=== PATIENT | female | born 1960 | race Caucasian/White ===

== ENCOUNTER 2023-10-28 14:30 | Inpatient (IN) | payer OTHER, SELFPAY ==
[2023-10-28] VITALS (36 sets, daily range): BP systolic 101–146; BP diastolic 66–94; PULSE 82–108; TEMP 36.7–37.4; O2SAT 97–99; BMI 26.5
--- NOTE | 2023-10-28 15:04 | ECG_ITS ---
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
[2023-10-28 15:21] LABS: Hematocrit 39.8 % (36.0-48.0); Mean Corpuscular HGB Conc 35.2 g/dL (29.9-35.2); Mean Corpuscular Hemoglobin 31.2 pg (26.7-34.0); Mean Corpuscular Volume 88.6 fL (81.0-99.0); Mean Platelet Volume 8.9 fL (9.5-13.5); Platelet Count 357 10^3/uL (150-450); Red Blood Count 4.49 10^6/uL (4.20-5.40); Red Cell Distribution Width 12.7 % (11.0-15.0); White Blood Count 19.4 10^3/uL (4.0-11.0)
[2023-10-28] MEDS: 0.9 % SODIUM CHLORIDE 1,000 ML 1000 ML IV (15:35)
[2023-10-28 15:39] LABS: Alanine Aminotransferase 34 U/L (14-59); Albumin Globulin Ratio 1.3; Albumin Level 4.2 g/dL (3.4-5.0); Alkaline Phosphatase 88 U/L (46-116); Anion Gap 14.8; Aspartate Amino Transferase 18 U/L (15-37); Bilirubin Total 0.9 mg/dL (0.2-1.0); Calcium 9.4 mg/dL (8.5-10.1); Carbon Dioxide 22.5 mmol/L (21.0-32.0); Chloride 95 mmol/L (98-107); Estimated GFR (African America >60 (>=60); Estimated GFR (Non-African Ame >60 (>=60); Globulin 3.3 g/dL; Glucose 109 mg/dL (74-106); Potassium 3.3 mmol/L (3.5-5.1); Sodium 129 mmol/L (136-145); Total Protein 7.5 g/dL (6.4-8.2); Troponin I High Sensitivity 7.8 pg/mL (4.0-51.3)
[2023-10-28 15:41] LABS: D Dimer 0.64 mg/L FEU (<=0.59)
--- NOTE | 2023-10-28 15:43 | CT_ITS ---
The [address] [address] Patient Name: NIKOLAY HORN MRN: [id number] date: 1960 Sex: F Assigned Patient Location: ER Current Patient Location: ER Accession/Order Number: [id number] Exam Date: 10/28/2023 16:30 Report Date: 10/28/2023 17:43 At the request of: BAKARI ALVAREZ Procedure: CT angio chest EXAM: CT angio chest HISTORY: POST OP D DIMER ELEVATED PALPITATION . Clinical suspicion of pulmonary embolus. COMPARISON: Chest x-ray 06/21/2020. TECHNIQUE: CTA chest PE protocol. Axial scans with triplanar and mid reformatted images. Individualized dose reduction used for this exam. Contrast: 98 mL Omnipaque 350. FINDINGS: Pulmonary arteries: Normal pulmonary artery enhancement without thrombus or embolus. Normal sized pulmonary artery. Lungs/pleura: Minor dependent atelectasis without consolidation or edema. No pleural effusion or pneumothorax Cardiac/vascular: Normal aortic enhancement without aneurysm or dissection. Minimal coronary artery calcification. Normal heart size. No evidence of right ventricular strain No pericardial effusion. Mediastinum: No mass or adenopathy. Unremarkable central airways, esophagus. No lower neck or axillary mass or adenopathy. No acute abnormality upper abdomen. MUSCULOSKELETAL: No suspicious bone lesion. Right shoulder hardware partially imaged. CT/CT angio chest IMPRESSION: Negative for pulmonary embolus or other acute appearing abnormality. Electronically authenticated by: SARAH PRITCHARD Date: 10/28/2023 17:43
[2023-10-28 15:46] LABS: Magnesium 1.6 mg/dL (1.8-2.4)
[2023-10-28 15:49] LABS: Lymphocytes Absolute Manual 0.77 10^3/uL (1.20-3.80); Monocytes Absolute Manual 0.97 10^3/uL (0.30-0.80); Segmented Neut Absolute Manual 17.65 10^3/uL (1.4-6.5)
[2023-10-28 15:51] LABS: Toxic Vacuolation 1+
[2023-10-28] MEDS: ONDANSETRON PF 4 MG/2 ML VIAL IV (15:58)
[2023-10-28] MEDS: FAMOTIDINE/PF 20 MG/2 ML VIAL IV (15:58)
--- NOTE | 2023-10-28 16:12 | ED.DIZZY1 ---
HPI - Dizziness General Chief Complaint: Dizziness Stated Complaint: DIZZY, PALPITATIONS, VOMITING Time Seen by Provider: 10/28/23 15:03 Source: patient Mode of arrival: walk-in History of Present Illness HPI Narrative: The patient comes to the ER with the symptoms of dizziness and palpitation that she has been feeling for the last at least 5 days, she also has been having decreased p.o. intake, the patient apparently almost few weeks ago she had a fracture of her right humerus after having a dislocation that she sustained while she was visiting [place], the patient then she was sent over when she had a surgery in [facility] last Sunday, the patient since then has been feeling of dizziness and decreased p.o. intake with palpitation She admitted that she is not eating enough and have no appetite, she is denying any chest pain although she feels that her heart racing Denying any leg weakness any numbness tingling down her arms She also denies any fever or chills any coughing or any difficulty breathing at the moment Related Data Home Medications ?Medication ?Instructions ?Recorded ?Confirmed acetaminophen 500 mg tablet 500 mg PO .q8 PRN pain 10/28/23 10/28/23 aspirin 81 mg tablet,delayed 81 mg PO BID 10/28/23 10/28/23 release atorvastatin 20 mg tablet 20 mg PO .qhs 10/28/23 10/28/23 calcium carbonate 500 mg-vitamin 1 tab PO BID 10/28/23 10/28/23 D3 5 mcg (200 unit) tablet (Oysco 500/D) docusate sodium 100 mg capsule 100 mg PO BID 10/28/23 10/28/23 hydrochlorothiazide 25 mg tablet 25 mg PO QDAY 10/28/23 10/28/23 ibuprofen 800 mg tablet 800 mg PO QDAY PRN pain 10/28/23 10/28/23 losartan 100 mg tablet 100 mg PO .qhs 10/28/23 10/28/23 ondansetron HCl 4 mg tablet 4 mg PO Q8H PRN nausea and vomiting 10/28/23 10/28/23 Allergies Allergy/AdvReac Type Severity Reaction Status Date / Time cephalexin [From Keflex] AdvReac Intermediate Unknown Verified 10/28/23 14:42 BACTRIM AdvReac Intermediate Unknown Uncoded 10/28/23 14:42 VANCOMYCIN AdvReac Intermediate UNKNOWN Uncoded 10/28/23 14:42 Review of Systems ROS Status of ROS 10 or more systems reviewed and unremarkable except as noted in history and below Exam Narrative Exam Narrative: Nurses notes and vital signs reviewed and patient is not hypoxic. General: Well-appearing and in no apparent distress. Skin: Warm, dry, no pallor noted. No rash. Head: Normocephalic, atraumatic. Neck: Supple, non-tender. Eye: Pupils are equal, round and EOMI. No scleral icterus. Ears, Nose, Mouth, and Throat: TM are clear, no nasal mucosal hypertrophy. Oral mucosa is moist, no posterior oropharynx erythema, uvula is mid-line Cardiovascular: Regular Rate and Rhythm without murmur, gallop or rub. Respiratory: No accessory muscle use or respiratory distress. Lungs are clear to auscultation, no wheezing, rales or rhonchi Chest Wall: no tenderness Back: No midline thoracic or lumbar vertebral tenderness. No CVA tenderness Musculoskeletal: normal ROM, no calf or popliteal tenderness, no lower extremity edema/swelling, on the right lateral aspect of the humerus the patient dressing of the recent surgery with no signs of infection clean and healing GI: Abdomen is soft, non-distended. Normal bowel sounds. No masses appreciated. No tenderness to palpation. No rebound, guarding, or rigidity noted. Neurological: A&O x4. No cranial nerve dysfunction observed. No truncal ataxia. Moves all extremities. Sensation intact. Psychiatric: Cooperative and interactive. Normal mood and affect. Constitutional Vital Signs, click to edit/add: Last Vital Signs Temp 98.0 F 10/28/23 14:37 Pulse 90 10/28/23 17:10 Resp 14 10/28/23 17:10 BP 125/82 10/28/23 14:37 Pulse Ox 99 10/28/23 14:37 O2 Del Method Room Air 10/28/23 14:37 Course Vital Signs Vital signs: Vital Signs Temperature 98.0 F 10/28/23 14:37 Pulse Rate 108 H 10/28/23 14:37 Respiratory Rate 18 10/28/23 14:37 Blood Pressure 125/82 10/28/23 14:37 Pulse Oximetry 99 10/28/23 14:37 Oxygen Delivery Method Room Air 10/28/23 14:37 Temperature 98.0 F 10/28/23 14:37 Pulse Rate 90 10/28/23 17:10 Respiratory Rate 14 10/28/23 17:10 Blood Pressure 125/82 10/28/23 14:37 Pulse Oximetry 99 10/28/23 14:37 Oxygen Delivery Method Room Air 10/28/23 14:37 MDM - Dizziness MDM Narrative Medical decision making narrative: The patient EKG showing sinus rhythm with a heart rate of 99 and there is some T wave inversion in lead V4, V5 and V6 also seen in lead II and aVF The patient CBC showed some leukocytosis which is mostly reactive there is no source of infection as the patient had her surgery 5 days ago The patient D-dimer was elevated CT PE shows no acute pathology The patient chemistry showing hyponatremia and hypochloremia as well as hypomagnesiumia that was corrected with IV magnesium and p.o. potassium Patient also provided with 1.5 L of fluid The patient case was discussed with and he requested the patient to be admitted for observation to be evaluated with cardiology as inpt The patient case was discussed with and she will be admitted under Patient repeated EKG shows still T wave inversion in lead II, aVF and V4 V5 and V6 I did explain to the patient that she will be admitted for observation. She did have multiple questions and I did provide her with answers. Patient seems to be very anxious. Lab Data Labs: Lab Results 10/28/23 10/28/23 10/28/23 Range/Units 15:10 17:15 17:47 WBC 19.4 H (4.0-11.0) 10^3/uL RBC 4.49 (4.20-5.40) 10^6/uL Hgb 14.0 (12.0-16.0) g/dL Hct 39.8 (36.0-48.0) % MCV 88.6 (81.0-99.0) fL MCH 31.2 (26.7-34.0) pg MCHC 35.2 (29.9-35.2) g/dL RDW 12.7 (11.0-15.0) % Plt Count 357 (150-450) 10^3/uL MPV 8.9 L (9.5-13.5) fL Seg Neuts % (Manual) 91.0 Lymphocytes % (Manual) 4.0 L (20.5-60.0) % Monocytes % (Manual) 5.0 (1.7-12.0) % Eosinophils % (Manual) 0.0 L (0.9-7.0) % Basophils % (Manual) 0.0 L (0.2-2.0) % Neutrophils # (Manual) 17.65 H (1.4-6.5) 10^3/uL Lymphocytes # (Manual) 0.77 L (1.20-3.80) 10^3/uL Monocytes # (Manual) 0.97 H (0.30-0.80) 10^3/uL Eosinophils # (Manual) 0.00 (0.00-0.70) 10^3/uL Basophils # (Manual) 0.00 (0.00-0.10) 10^3/uL Toxic Vacuolation 1+ D-Dimer 0.64 H* (<=0.59) mg/L FEU Sodium 129 L (136-145) mmol/L Potassium 3.3 L (3.5-5.1) mmol/L Chloride 95 L (98-107) mmol/L Carbon Dioxide 22.5 (21.0-32.0) mmol/L Anion Gap 14.8 BUN 16.0 (7.0-18.0) mg/dL Creatinine 0.80 (0.55-1.02) mg/dL Est GFR ( Amer) >60 (>=60) Est GFR (Non-Af Amer) >60 (>=60) BUN/Creatinine Ratio 20.0 Glucose 109 H (74-106) mg/dL Calcium 9.4 (8.5-10.1) mg/dL Magnesium 1.6 L (1.8-2.4) mg/dL Total Bilirubin 0.9 (0.2-1.0) mg/dL AST 18 (15-37) U/L ALT 34 (14-59) U/L Alkaline Phosphatase 88 (46-116) U/L Troponin I High Sens 7.8 7.8 (4.0-51.3) pg/mL Total Protein 7.5 (6.4-8.2) g/dL Albumin 4.2 (3.4-5.0) g/dL Globulin 3.3 g/dL Albumin/Globulin Ratio 1.3 SARS-CoV-2 Ag (CV2AG) Negative (NEGATIVE) Discharge Plan Discharge Chief Complaint: Dizziness Clinical Impression: Acute electrocardiogram changes, Dizziness, Acute hyponatremia, Hypomagnesemia Patient Disposition: Admitted as Observation Time of Disposition Decision: 18:43
[2023-10-28] MEDS: MAGNESIUM SULFATE IN WATER 2 GM/50 ML PREMIX IV (16:18)
[2023-10-28 17:38] LABS: Troponin I High Sensitivity 7.8 pg/mL (4.0-51.3)
[2023-10-28] MEDS: 0.9 % SODIUM CHLORIDE 1,000 ML 500 ML IV (18:01)
[2023-10-28 18:05] LABS: Internal Control Within Normal Limits; SARS-CoV-2 Ag NEGATIVE (NEGATIVE)
--- NOTE | 2023-10-28 18:28 | ECG_ITS ---
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
[2023-10-28] MEDS: POTASSIUM BICARBONATE/CIT 25 MEQ TABLET EFF PO (18:51)
[2023-10-28 19:23] LABS: Bilirubin Urine NEGATIVE (NEGATIVE); Blood Urine NEGATIVE (NEGATIVE); Clarity Urine CLEAR (CLEAR); Color Urine LT. YELLOW (YELLOW); Glucose Urine UA NEGATIVE (NEGATIVE); Ketones Urine 15 mg/dL (NEGATIVE); Leukocyte Esterase Urine NEGATIVE (NEGATIVE); Nitrite Urine NEGATIVE (NEGATIVE); Protein Urine NEGATIVE (NEG/TRACE); Urobilinogen Urine 0.2 EU/dL (0.2-1.0)
[2023-10-28 19:24] LABS: Urine Microscopic Indicated NO
[2023-10-28] MEDS: ACETAMINOPHEN 325 MG TABLET 650 MG PO (20:08)
[2023-10-28] MEDS: LOSARTAN POTASSIUM 50 MG TABLET 100 MG PO (21:31)
[2023-10-28] MEDS: ATORVASTATIN CALCIUM 20 MG TABLET PO (21:31)
[2023-10-28] MEDS: ASPIRIN 81 MG TABLET.DR PO (21:31)
[2023-10-29] VITALS (21 sets, daily range): BP systolic 112–125; BP diastolic 73–82; PULSE 65–91; TEMP 36.3–36.9; O2SAT 95–100
[2023-10-29] MEDS: ACETAMINOPHEN 325 MG TABLET 650 MG PO ×3 (06:45→22:54)
[2023-10-29 07:01] LABS: Basophils Absolute Auto 0.1 10^3/uL (0.0-0.1); Basophils Percent Auto 0.5 % (0.2-2.0); Eosinophils Absolute Auto 0.1 10^3/uL (0.0-0.7); Eosinophils Percent Auto 0.4 % (0.9-7.0); Hematocrit 35.4 % (36.0-48.0); Immature Granulocytes Abs Auto 0.05 10^3/uL (0.00-0.03); Immature Granulocytes Pct Auto 0.4 % (0.0-0.5); Lymphocytes Absolute Auto 1.2 10^3/uL (1.2-3.8); Lymphocytes Percent Auto 9.8 % (20.5-60.0); Mean Corpuscular HGB Conc 33.9 g/dL (29.9-35.2); Mean Corpuscular Hemoglobin 31.3 pg (26.7-34.0); Mean Corpuscular Volume 92.2 fL (81.0-99.0); Monocytes Absolute Auto 0.9 10^3/uL (0.3-0.8); Monocytes Percent Auto 6.9 % (1.7-12.0); Neutrophils Absolute Auto 10.3 10^3/uL (1.4-6.5); Platelet Count 300 10^3/uL (150-450); Red Blood Count 3.84 10^6/uL (4.20-5.40); Red Cell Distribution Width 13.2 % (11.0-15.0); White Blood Count 12.5 10^3/uL (4.0-11.0)
[2023-10-29 07:28] LABS: INR 1.06; Partial Thromboplastin Time 33.6 sec (22.3-36.2); Prothrombin Time 11.2 sec (9.0-11.6)
[2023-10-29 07:29] LABS: Troponin I High Sensitivity 9.6 pg/mL (4.0-51.3)
[2023-10-29 07:58] LABS: Alanine Aminotransferase 29 U/L (14-59); Albumin Globulin Ratio 1.1; Albumin Level 3.2 g/dL (3.4-5.0); Alkaline Phosphatase 70 U/L (46-116); Anion Gap 12.1; Aspartate Amino Transferase 15 U/L (15-37); BUN Creatinine Ratio 11.4; Bilirubin Total 0.7 mg/dL (0.2-1.0); Calcium 8.3 mg/dL (8.5-10.1); Carbon Dioxide 25.4 mmol/L (21.0-32.0); Chloride 101 mmol/L (98-107); Estimated GFR (African America >60 (>=60); Estimated GFR (Non-African Ame >60 (>=60); Glucose 108 mg/dL (74-106); Phosphorus 3.7 mg/dL (2.6-4.7); Potassium 3.5 mmol/L (3.5-5.1); Sodium 135 mmol/L (136-145); Total Protein 6.2 g/dL (6.4-8.2)
[2023-10-29] MEDS: ASPIRIN 81 MG TABLET.DR PO ×2 (08:30→21:15)
[2023-10-29] MEDS: HYDROCHLOROTHIAZIDE 25 MG TABLET PO (08:30)
[2023-10-29] MEDS: CALCIUM CARBONATE 600 MG/VITAMIN D3 400 IU TABLET 1 TAB PO (08:30)
--- NOTE | 2023-10-29 08:51 | P.HP_ITS ---
HPI H&P: HPI History of Present Illness Chief complaint: PALPITATIONS, VOMITING-NEW EKG CHANGES, DIZZINESS Narrative: Patient is a 62 y.o white female with past medical history of HTN, HLD, who presented to the ER last night for nausea/vomiting and palpitations. Her history is complicated by a recent right humerus fracture in [place], [place] in which she could not get into an [place] [facility] surgeon and also surgery until last week. She had Surgery on 10/23/23 at [facility] by Dr. Kyle Izaguirre. Her fracture repair did involve a plate. Since last week, she has been taking calcium supplement but nothing more than Tylenol for pain. She notes nausea with some vomiting and has not been able to keep much down in the last few days. Then she started to notice her heart race and she was going to to [facility], but could not make it there and stopped here at the ED. She notes a vague history of possible mitral valve prolapse, but had a normal ECHO in September 2023 prior to her traumatic fracture. She denies any surgical complications. She has been compliant with her medications. She follows with her PCP regularly. No other cardiac history other than HTN, HLD. She denies any prior heart attacks or chest pain with this event. ER findings: WBC's 19.4, Hb 14, Elevated Ddimer, sodium 129, potassium 3.3, magnesium 1.6, Normal Trop, proBNP 154. CTA showed no evidence of PE or acute process. There were EKG changes with inverted T waves on EKG. UA negative. Patient was given fluid, potassium and magnesium replaced. She was admitted to the hospitalist services. This morning patient is resting comfortably in bed. She reports she is feeling much better. She denies palpitations, chest pain or shortness of breath. She is in a right arm sling. Opioid HPI Opioid Management Most Recent Pain and Opioid Data: Last Pain Scale 0 10/29/23 11:58 Last Pain Assessment 10/29/23 11:58 Last ED Pain Assessment 10/28/23 15:18 Last MAR Pain Assessment 10/29/23 08:28 Last ORT Total Score 0 10/28/23 20:55 Last ORT Risk Category Low Risk 10/28/23 20:55 Review of Systems ROS Narrative ROS: a complete review of systems were reviewed with patient and are positive as below or listed in History of Chief Complaint. General: no fever, chills, night sweats Head: no headache, trauma, visual changes, nausea or vomiting Skin: no reported rashes, itching or sores Eyes: no blurriness of vision Ears: no reported hearing loss, vertigo, earache, or tinnitus Throat: no sore throat, hoarseness, swelling of neck, or tongue pain Heart: no chest pain, increased heart rate/palpitations Lungs: no shortness of breath or cough GI: no diarrhea but vomiting/nausea Urinary: no urinary urgency, frequency or pain Neuro: no numbness or tingling HEM: no bleeding issues or bruising ENDO: no thyroid problems Psych: no anxiety or depression [facility] Medical History (Updated 10/29/23 @ 13:00 by Kassy Ross DO) Humeral head fracture ?S42.293A - Other displaced fracture of upper end of unspecified humerus, initial encounter for closed fracture (ICD-10) High cholesterol ?E78.00 - Pure hypercholesterolemia, unspecified (ICD-10) HTN (hypertension) ?I10 - Essential (primary) hypertension (ICD-10) Social History Highest level of school completed/degree received: Master's degree Meds Home Medications and Allergies Home Medications ?Medication ?Instructions ?Recorded ?Confirmed ?Type acetaminophen 500 mg tablet 500 mg PO .q8 PRN pain 10/28/23 10/28/23 History aspirin 81 mg tablet,delayed 81 mg PO BID 10/28/23 10/28/23 History release atorvastatin 20 mg tablet 20 mg PO .qhs 10/28/23 10/28/23 History calcium carbonate 500 mg-vitamin 1 tab PO BID 10/28/23 10/28/23 History D3 5 mcg (200 unit) tablet (Oysco 500/D) docusate sodium 100 mg capsule 100 mg PO BID 10/28/23 10/28/23 History hydrochlorothiazide 25 mg tablet 25 mg PO QDAY 10/28/23 10/28/23 History ibuprofen 800 mg tablet 800 mg PO QDAY PRN pain 10/28/23 10/28/23 History losartan 100 mg tablet 100 mg PO .qhs 10/28/23 10/28/23 History ondansetron HCl 4 mg tablet 4 mg PO Q8H PRN nausea and vomiting 10/28/23 10/28/23 History Allergies Allergy/AdvReac Type Severity Reaction Status Date / Time cephalexin [From Keflex] AdvReac Intermediate Unknown Verified 10/28/23 14:42 BACTRIM AdvReac Intermediate Unknown Uncoded 10/28/23 14:42 VANCOMYCIN AdvReac Intermediate UNKNOWN Uncoded 10/28/23 14:42 Exam Narrative Exam Narrative: General: Patient is alert, and oriented to person, place and time with normal affect, proper hygiene Skin: no visible rashes, or ulcers Head: atraumatic, acephalic Eyes: PERRLA, no nystagmus present, conjunctiva clear, no scleral icterus Ears: normal gross auditory acuity Nose: symmetric, no discharge, no maxillary or frontal sinus tenderness Heart: Normal rate and rhythm, no murmurs/rubs/gallops Lungs: no audible wheezes, crackles and normal breath sounds all lung pinedo Abdomen: Normal audible bowel sounds, no distension, No palpable masses, no organomegaly, no rebound/guarding/ or rigidity Musculoskeletal: no swelling bilateral lower extremities, right arm is in a sling Neuro: CN II-X grossly intact Constitutional Vital Signs, click to edit/add: Last Vital Signs Temp 97.5 F L 10/29/23 08:34 Pulse 75 10/29/23 08:34 Resp 12 10/29/23 08:34 BP 119/79 10/29/23 08:34 Pulse Ox 97 10/29/23 08:34 O2 Del Method Room Air 10/29/23 08:34 Results Labs Labs: Short CBC 10/28/23 10/29/23 Range/Units 15:10 06:34 WBC 19.4 H 12.5 H (4.0-11.0) 10^3/uL Hgb 14.0 12.0 (12.0-16.0) g/dL Hct 39.8 35.4 L (36.0-48.0) % Plt Count 357 300 (150-450) 10^3/uL BMP 10/28/23 10/29/23 15:10 06:34 Sodium 129 L 135 L Potassium 3.3 L 3.5 Chloride 95 L 101 Carbon Dioxide 22.5 25.4 BUN 16.0 9.0 Creatinine 0.80 0.79 Glucose 109 H 108 H Calcium 9.4 8.3 L Liver Function 10/28/23 10/29/23 Range/Units 15:10 06:34 Total Bilirubin 0.9 0.7 (0.2-1.0) mg/dL AST 18 15 (15-37) U/L ALT 34 29 (14-59) U/L Alkaline Phosphatase 88 70 (46-116) U/L Albumin 4.2 3.2 L (3.4-5.0) g/dL Urine 10/28/23 Range/Units 19:17 Urine Color Lt. yellow (YELLOW) Urine Clarity Clear (CLEAR) Urine pH 6.0 (5.0-9.0) Ur Specific [place] 1.010 (1.005-1.025) Urine Protein Negative (NEG/TRACE) mg/dL Urine Glucose (UA) Negative (NEGATIVE) mg/dL Assessment and Plan Assessment and Plan (1) Acute hyponatremia: Assessment and Plan: was 129, after IVF, this morning recheck 135 (2) Hypomagnesemia: Assessment and Plan: 1.6, replaced with 2 grams Mg, 2.0 this morning (3) Acute electrocardiogram changes: Assessment and Plan: recent normal Echo September 2023 with [facility], No comparable EKG but t wave inversion. Could be related to acute electrolyte abnormalities. patient on telemetry, no overnight events. ECHO today, cardiology consult for further recommendations. No active chest pain, Trop and proBNP within normal limits. NO PE's, oxygenation has been normal (4) Humeral head fracture: Assessment and Plan: recent surgery, in sling. Qualifiers: Encounter type: initial encounter Fracture type: closed Laterality: right Qualified Code(s): S42.291A - Other displaced fracture of upper end of right humerus, initial encounter for closed fracture (5) High cholesterol: Assessment and Plan: continue atorvastatin (6) HTN (hypertension): Assessment and Plan: hold hctz, continue losartan. Qualifiers: Hypertension type: primary hypertension Qualified Code(s): I10 - Essential (primary) hypertension (7) Palpitations: Assessment and Plan: Will check thyroid studies but feel dehydration and electrolyte abnormalities to blame. (8) Leukocytosis: Assessment and Plan: reactive from surgery, UA normal, no infectious symptoms. Afebrile. improving with fluids down to 12.5 Qualifiers: Leukocytosis type: unspecified Qualified Code(s): D72.829 - Elevated white blood cell count, unspecified Plan patient is a full code Cardiology consult and ECHO today with possible discharge this evening pending results and recs.
--- NOTE | 2023-10-29 08:58 | CA_ITS ---
Patient Name: NIKOLAY HORN MR#: [id number] : 1960 Exam Date: 10/29/2023 Ordering Doctor: ANNALEE DOAN . ECHOCARDIOGRAM REPORT PROCEDURE: CA ECHO DOPPLER COMPLETE INDICATIONS: ekg changes, palpitations, dizziness COMPARISON: None. DESCRIPTION: COMPLETE ECHOCARDIOGRAM Real-time transthoracic echocardiography with 2D, M-mode, spectral and color flow Doppler performed. QUALITY: Technical quality was good. LEFT VENTRICLE: Normal chamber size. Normal left ventricular wall thickness. Global left ventricular systolic function is normal. No wall motion abnormalities seen. LV EF: Estimated left ventricular ejection fraction is 65% DIASTOLIC: Normal diastolic function. ATRIAL SEPTUM: LEFT ATRIUM: Normal chamber size. RIGHT ATRIUM: Normal chamber size. RIGHT VENTRICLE: Normal chamber size. Normal right ventricular systolic function. TRICUSPID VALVE: Normal mobility and thickness. No stenosis with trivial regurgitation. Mild pulmonary hypertension. RVSP 36 mmHg MITRAL VALVE: Normal leaflet motion without a significant leaflet prolapse. No evidence of mitral valve stenosis. There is no mitral annular calcification. Trivial mitral regurgitation. AORTIC VALVE: Normal trileaflet appearance. No visible sclerosis. Normal leaflet mobility. No evidence of aortic valve stenosis. No aortic regurgitation. AORTIC ROOT: Normal diameter and appearance. PULMONIC VALVE: Normal thickness and mobility. No stenosis. No regurgitation. PERICARDIUM: Trivial pericardial effusion. IVC: Collapses with inspirations. Normal size. PLEURA: CONCLUSION: 1. Normal ventricular size and systolic function. LVEF is estimated at 65%. No segmental wall motion abnormalities seen. 2. Normal diastolic function. 3. Normal valvular function. 4. Mildly elevated right-sided pressures. 5. No pericardial effusion. Adult Echocardiography Procedure Report Left Ventricle LVEDD (3.7 - 5.6 cm): 4.16 cm LVESD (2.2 - 4.0 cm): 2.95 cm LVIVS thickness (0.6 - 1.2 cm): 0.87 cm LVPW thickness (0.5 - 1.0 cm): 0.96 cm e': 0.12 m/s E - e': 6.24 LVOT Max Gradient: 4.42 mm[Hg], 3.90 mm[Hg] LVOT Area (cm2): 1.02 m/s Peak Velocity (LVOT): 1.05 m/s, 0.99 m/s Mean Velocity (LVOT): 0.74 m/s LVOT Diameter 2.24 cm Left Ventricular Ejection Fraction: 67.75 % Left Atrium LA Volume Index (2D A2C): 31.61 ml/m2 Left Atrium Systolic Dimension: 3.40 cm Mitral Valve MV E to A Ratio: 1.27, 1.07 Mitral Valve A-Wave Peak Velocity: 0.66 m/s Mitral Valve E-Wave Peak Velocity: 0.77 m/s Right Ventricle RV Internal Diastolic Dimension: 3.73 cm Aorta AO Root Diam: 3.27 cm Ascending Ao Diam: 2.93 cm Aortic Valve AoV Area (Peak Yobani): 3.12 cm2, 3.22 cm2 AoV Area (VTI): 3.13 cm2, 3.23 cm2 Peak Velocity(Antegrade Flow): 1.29 m/s Peak Gradient(Antegrade Flow): 6.64 mm[Hg] Mean Velocity(Antegrade Flow): 0.89 m/s Mean Gradient(Antegrade Flow): 3.58 mm[Hg] Velocity Time Integral: 27.24 cm Tricuspid Valve Peak Velocity (Regurgitant Flow): 2.49 m/s, 2.39 m/s, 2.86 m/s Pulmonic Valve Mean Gradient: 2.58 mm[Hg], 1.52 mm[Hg] Mean Velocity: 0.77 m/s, 0.58 m/s Peak Velocity: 0.95 m/s Peak Gradient: 4.74 mm[Hg], 2.60 mm[Hg] Right Atrium Right Atrium Systolic Pressure: 72.34 ml, 72.34 ml Dictated by: Layo Reese M.D. on 10/29/2023 at 13:10 Approved by: Layo Reese M.D. on 10/29/2023 at 13:15
--- NOTE | 2023-10-29 09:48 | ECG_ITS ---
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
--- NOTE | 2023-10-29 10:58 | CM.NOTE ---
Rounds made with Dr. Ross. Echo, Cardiology Consult and repeat EKG to be done today. Potential discharge later today after Consults.
[2023-10-29 13:20] LABS: TSH W/ REFLEX FT4 0.311 uIU/mL (0.358-3.740)
[2023-10-29 14:33] LABS: Free T4 1.36 ng/dL (0.76-1.46)
--- NOTE | 2023-10-29 14:56 | PM.CACN ---
History of Present Illness History of Present Illness Consult date: 10/29/23 Requesting physician: Kassy Ross Consult reason: post-op evaluation (abnormal ECG) Chief complaint: PALPITATIONS, VOMITING-NEW EKG CHANGES, DIZZINESS Narrative: This is a 62-year-old woman with no significant prior cardiac history other than possible mitral valve prolapse, and hypertension on losartan and hydrochlorothiazide who is currently admitted with vomiting, dizziness possible dehydration. She was found to have abnormal ECG manifesting as T wave inversions in inferior and lateral leads. There was sinus rhythm. On admission she was found to have electrolyte derangement including potassium and sodium as well as magnesium. Today she reports that she has been feeling well. It appears that her symptoms have resolved. She denies chest pain or any anginal equivalent. She has no shortness of breath on exertion. She has no leg swelling. She does not feel palpitations. She reports that about a week ago she underwent surgery to the right shoulder. Following that surgery she did not feel well after the general anesthesia and she kept on having symptoms of nausea and poor appetite over the past week leading to her current presentation. She reports that the injury to the shoulder happened after a mechanical fall several weeks earlier. Of note her echocardiogram today was within normal limits. The ECG today showed sinus rhythm with normalization of the T wave changes in the lateral leads with persistent T wave inversion in the inferior leads. Her troponin levels were negative x3. Review of Systems ROS Status of ROS 10 or more systems reviewed and unremarkable except as noted in history and below Cardiovascular Denies: chest pain, palpitations, edema or shortness of breath with exertion Gastrointestinal Reports: nausea and vomiting [facility] Medical History (Updated 10/29/23 @ 13:00 by Kassy Ross DO) Humeral head fracture ?S42.293A - Other displaced fracture of upper end of unspecified humerus, initial encounter for closed fracture (ICD-10) High cholesterol ?E78.00 - Pure hypercholesterolemia, unspecified (ICD-10) HTN (hypertension) ?I10 - Essential (primary) hypertension (ICD-10) Social History Highest level of school completed/degree received: Master's degree Meds Home Medications and Allergies Home Medications ?Medication ?Instructions ?Recorded ?Confirmed ?Type acetaminophen 500 mg tablet 500 mg PO .q8 PRN pain 10/28/23 10/28/23 History aspirin 81 mg tablet,delayed 81 mg PO BID 10/28/23 10/28/23 History release atorvastatin 20 mg tablet 20 mg PO .qhs 10/28/23 10/28/23 History calcium carbonate 500 mg-vitamin 1 tab PO BID 10/28/23 10/28/23 History D3 5 mcg (200 unit) tablet (Oysco 500/D) docusate sodium 100 mg capsule 100 mg PO BID 10/28/23 10/28/23 History hydrochlorothiazide 25 mg tablet 25 mg PO QDAY 10/28/23 10/28/23 History ibuprofen 800 mg tablet 800 mg PO QDAY PRN pain 10/28/23 10/28/23 History losartan 100 mg tablet 100 mg PO .qhs 10/28/23 10/28/23 History ondansetron HCl 4 mg tablet 4 mg PO Q8H PRN nausea and vomiting 10/28/23 10/28/23 History Allergies Allergy/AdvReac Type Severity Reaction Status Date / Time cephalexin [From Keflex] AdvReac Intermediate Unknown Verified 10/28/23 14:42 BACTRIM AdvReac Intermediate Unknown Uncoded 10/28/23 14:42 VANCOMYCIN AdvReac Intermediate UNKNOWN Uncoded 10/28/23 14:42 Exam Constitutional Vital Signs, click to edit/add: Last Vital Signs Temp 98.5 F 10/29/23 11:58 Pulse 74 10/29/23 14:00 Resp 12 10/29/23 11:58 BP 122/81 10/29/23 11:58 Pulse Ox 96 10/29/23 11:58 O2 Del Method Room Air 10/29/23 11:58 Documenting provider has reviewed patient's vital signs: yes Common normals: no apparent distress, oriented x3, no limitations, alert and well nourished General appearance: cooperative and comfortable [facility] Common normals: normocephalic Lymph Lymphatic: no lymphedema noted Chest Common normals: inspection of chest normal and palpation of chest normal Respiratory Common normals: normal respiratory effort Auscultation: clear to auscultation bilaterally Cardio Common normals: no JVD, regular rate, regular rhythm, S1 normal heart sound, S2 normal heart sound, no gallops, no clicks, no murmurs and peripheral pulses 2+ throughout Jugular venous distention: no JVD and no other Rate: regular rate Rhythm: regular rhythm GI Common normals: Normal to inspection, nondistended, normoactive bowel sounds present Extremity Common normals: normal to inspection Neuro Common normals: oriented x3 Speech: speech normal Motor exam: no movement abnormalities noted Psych Common normals: mental status grossly normal, thought process normal, cooperative and affect normal Results Labs and Meds Lab results: Cardiac Enzymes 10/28/23 10/29/23 Range/Units 15:10 06:34 AST 18 15 (15-37) U/L Coagulation 10/29/23 Range/Units 06:34 PT 11.2 (9.0-11.6) sec APTT 33.6 (22.3-36.2) sec CBC 10/28/23 10/29/23 Range/Units 15:10 06:34 WBC 19.4 H 12.5 H (4.0-11.0) 10^3/uL RBC 4.49 3.84 L (4.20-5.40) 10^6/uL Hgb 14.0 12.0 (12.0-16.0) g/dL Hct 39.8 35.4 L (36.0-48.0) % Plt Count 357 300 (150-450) 10^3/uL Neut # (Auto) 10.3 H (1.4-6.5) 10^3/uL Lymph # (Auto) 1.2 (1.2-3.8) 10^3/uL [place] # (Auto) 0.9 H (0.3-0.8) 10^3/uL Eos # (Auto) 0.1 (0.0-0.7) 10^3/uL Baso # (Auto) 0.1 (0.0-0.1) 10^3/uL Comprehensive Metabolic Panel 10/28/23 10/29/23 Range/Units 15:10 06:34 Sodium 129 L 135 L (136-145) mmol/L Potassium 3.3 L 3.5 (3.5-5.1) mmol/L Chloride 95 L 101 (98-107) mmol/L Carbon Dioxide 22.5 25.4 (21.0-32.0) mmol/L BUN 16.0 9.0 (7.0-18.0) mg/dL Creatinine 0.80 0.79 (0.55-1.02) mg/dL Glucose 109 H 108 H (74-106) mg/dL Calcium 9.4 8.3 L (8.5-10.1) mg/dL AST 18 15 (15-37) U/L ALT 34 29 (14-59) U/L Alkaline Phosphatase 88 70 (46-116) U/L Total Protein 7.5 6.2 L (6.4-8.2) g/dL Albumin 4.2 3.2 L (3.4-5.0) g/dL Intake and Output 10/28/23 10/29/23 10/29/23 23:59 07:59 15:59 Intake Total 2049 Output Total 300 / 800 500 / 800 Balance 1750 / 1250 -500 / 1250 Intake: IV 2049 0.9 % Sodium Chloride 1,000 ml 2000 / 2000 @ 500 mls/hr IV .Q2H ONE Rx#: [id number] Magnesium Sulfate in Water 2 gm 50 / 50 In 50 ml @ 50 mls/hr IV ONCE ONE Rx#:[id number] Output: Urine 300 / 800 500 / 800 Other: # Unmeasured Voids 1 Weight 70 kg Assessment and Plan Assessment and Plan (1) Acute hyponatremia: (2) Hypomagnesemia: (3) Acute electrocardiogram changes: Assessment and Plan: T wave inversions in the inferior and lateral leads (4) Humeral head fracture: Qualifiers: Encounter type: initial encounter Fracture type: closed Laterality: right Qualified Code(s): S42.291A - Other displaced fracture of upper end of right humerus, initial encounter for closed fracture (5) High cholesterol: (6) HTN (hypertension): Qualifiers: Hypertension type: primary hypertension Qualified Code(s): I10 - Essential (primary) hypertension (7) Palpitations: (8) Leukocytosis: Qualifiers: Leukocytosis type: unspecified Qualified Code(s): D72.829 - Elevated white blood cell count, unspecified Plan I reviewed her electrocardiograms from yesterday and today. There was some T wave inversions noted on yesterday's ECGs seen in leads III and aVF and V4 V5 V6. Today's ECG showed normal sinus rhythm with slight T wave inversions in leads III and aVF and nonspecific T wave changes in the rest of the leads. She denies symptoms of angina. Her echocardiogram today showed normal ventricular function with no wall motion abnormalities. There was no abnormal valvular function. It is possible that the T wave changes are related to the stress of the current presentation. However I think it is important to rule out any underlying ischemic heart disease. I recommend proceeding with a stress test with myocardial perfusion imaging. I agree with discontinuing hydrochlorothiazide. Her blood pressure has been reasonably controlled. If the stress test is within normal limits, then she can be discharged from the hospital to follow-up in the cardiology clinic.
[2023-10-29] MEDS: LOSARTAN POTASSIUM 50 MG TABLET 100 MG PO (21:13)
[2023-10-29] MEDS: ATORVASTATIN CALCIUM 20 MG TABLET PO (21:13)
[2023-10-30] VITALS (14 sets, daily range): BP systolic 112–124; BP diastolic 73–77; PULSE 65–85; TEMP 36.5–36.9; O2SAT 94–99; BMI 26.5
[2023-10-30 06:01] LABS: Basophils Absolute Auto 0.1 10^3/uL (0.0-0.1); Basophils Percent Auto 0.4 % (0.2-2.0); Eosinophils Absolute Auto 0.1 10^3/uL (0.0-0.7); Hematocrit 35.6 % (36.0-48.0); Hemoglobin 12.1 g/dL (12.0-16.0); Immature Granulocytes Abs Auto 0.04 10^3/uL (0.00-0.03); Immature Granulocytes Pct Auto 0.3 % (0.0-0.5); Lymphocytes Absolute Auto 1.9 10^3/uL (1.2-3.8); Lymphocytes Percent Auto 15.6 % (20.5-60.0); Mean Corpuscular Volume 91.3 fL (81.0-99.0); Mean Platelet Volume 8.9 fL (9.5-13.5); Monocytes Absolute Auto 1.2 10^3/uL (0.3-0.8); Monocytes Percent Auto 9.6 % (1.7-12.0); Neutrophils Absolute Auto 8.7 10^3/uL (1.4-6.5); Neutrophils Percent Auto 73.1 % (43.0-75.0); Platelet Count 320 10^3/uL (150-450); Red Cell Distribution Width 13.1 % (11.0-15.0)
[2023-10-30 06:03] LABS: Estimated Average Glucose 105 mg/dL; Glycohemoglobin A1C 5.3 % (4.5-6.2)
[2023-10-30 06:16] LABS: Alanine Aminotransferase 47 U/L (14-59); Albumin Globulin Ratio 0.9; Albumin Level 3.2 g/dL (3.4-5.0); Alkaline Phosphatase 77 U/L (46-116); Anion Gap 12.2; Aspartate Amino Transferase 22 U/L (15-37); BUN Creatinine Ratio 17.3; Bilirubin Total 0.4 mg/dL (0.2-1.0); Calcium 8.9 mg/dL (8.5-10.1); Carbon Dioxide 26.4 mmol/L (21.0-32.0); Chloride 97 mmol/L (98-107); Chol HDL Ratio 2.7; Cholesterol 129 mg/dL (<=200); Estimated GFR (African America >60 (>=60); Estimated GFR (Non-African Ame >60 (>=60); Globulin 3.4 g/dL; Glucose 105 mg/dL (74-106); HDL Cholesterol 47 mg/dL (40-60); LDL Cholesterol Calculated 65.4 mg/dL; Magnesium 1.8 mg/dL (1.8-2.4); Potassium 3.6 mmol/L (3.5-5.1); Sodium 132 mmol/L (136-145); Total Protein 6.6 g/dL (6.4-8.2); Triglycerides 83 mg/dL (<=150); VLDL CHOLESTEROL 16.6 mg/dL
--- NOTE | 2023-10-30 08:00 | NM_ITS ---
Patient Name: NIKOLAY HORN MR#: [id number] : 1960 Exam Date: 10/30/2023 Ordering Doctor: DR THEE GONCALVES M.D. RADIOLOGY REPORT PROCEDURE: NM JOHN PERF SPECT REST STR COMPARISON: None. INDICATIONS: EKG changes TECHNIQUE: Exam Description: Stress/Rest one day protocol gated SPECT Rest Imagin.8 mCi Tc-99m Cardiolite IV on 10/30/2023 Stress Imaging 30.4 mCi Tc-99m Cardiolite IV on 10/30/2023 Exercise Protocol: 0.4 mg Lexiscan given IV Heart Rate (bpm): Rest: 72 Max: 106 PMHR: 66 Blood Pressure: Rest: 126/78 Max: 126/78 Symptoms: Rest and peak stress ECG findings were pending and the exercise portion of the study was pending per attending physician Dr. Holt . For more details please see separate cardiac stress test report. FINDINGS: QUALITY OF STUDY: PERFUSION DEFECT: LOCATION: Apical inferior. SIZE: Small (1-2 segments). SEVERITY: Mild. TYPE: Persistent. WALL MOTION: Normal. LV SIZE: Normal. 70 mL. TID / TCD: None; 0.8 LVEF: Normal. Calculated EF 85%. SUMMARY: Myocardial perfusion imaging study has ABNORMAL findings. CONCLUSION: 1. No acute or reversible ischemia. 2. Small area of slightly decreased radiotracer uptake within the apical inferior wall which is better perfused during stress imaging than rest imaging suggesting this represents diaphragm attenuation artifact. 3. Normal wall motion, left ventricle volume common ejection fraction. Dictated by: Kulwant Berrios M.D. on 10/30/2023 at 14:31 Approved by: Kulwant Berrios M.D. on 10/30/2023 at 14:34
--- NOTE | 2023-10-30 08:37 | PM.DS1 ---
DS: Providers Provider Date of admission: 10/29/23 15:52 Primary care physician: DAREN DESAI Admitting clinician: Kassy Ross Consults: 10/28/23 Consult to Dietitian Routine Reason for consultation: N/V no appepite for 5 days Has provider been notified: No 10/28/23 18:46 Consult to Cardiology Routine Reason for consultation: new Ekg changes Has provider been notified: Yes Attending physician on discharge: Kassy Ross DS: Diagnosis Discharge Diagnosis (1) Acute hyponatremia: (2) Hypomagnesemia: (3) Acute electrocardiogram changes: (4) Humeral head fracture: Qualifiers: Encounter type: initial encounter Fracture type: closed Laterality: right Qualified Code(s): S42.291A - Other displaced fracture of upper end of right humerus, initial encounter for closed fracture (5) High cholesterol: (6) HTN (hypertension): Qualifiers: Hypertension type: primary hypertension Qualified Code(s): I10 - Essential (primary) hypertension (7) Palpitations: (8) Leukocytosis: Qualifiers: Leukocytosis type: unspecified Qualified Code(s): D72.829 - Elevated white blood cell count, unspecified DS: Summary Hospital Course Hospital Course: Patient is a 62 y.o white female with past medical history of HTN, HLD, who presented to the ER for nausea/vomiting and palpitations. Her history is complicated by a recent right humerus fracture in [place], [place] in which she could not get into an [place] [facility] surgeon and also surgery until last week. She had Surgery on 10/23/23 at [facility] by Dr. Kyle Izaguirre. Her fracture repair did involve a plate. Since last week, she has been taking calcium supplement but nothing more than Tylenol for pain. She notes nausea with some vomiting and has not been able to keep much down in the last few days. Then she started to notice her heart race and she was going to to hospital, but could not make it there and stopped here at the ED. She notes a vague history of possible mitral valve prolapse, but had a normal ECHO in September 2023 prior to her traumatic fracture. She denies any surgical complications. She has been compliant with her medications. She follows with her PCP regularly. No other cardiac history other than HTN, HLD. She denies any prior heart attacks or chest pain with this event. ER findings: WBC's 19.4, Hb 14, Elevated Ddimer, sodium 129, potassium 3.3, magnesium 1.6, Normal Trop, proBNP 154. CTA showed no evidence of PE or acute process. There were EKG changes with inverted T waves on EKG. UA negative. Patient was given fluid, potassium and magnesium replaced. She was admitted to the hospitalist services. Patient electrolytes replaced, IVF given, held hctz. Cardiology consult, recommended inpatient stress test. Due to patient's EKG changes and electrolyte abnormalities patient is higher risk for decompensation so was made inpatient status 10/29/23. Echocardiogram was normal. No events on telemetry. Thyroid tests showed slightly low TSH but normal T4. Nuclear stress test 10/30/23 showed Normal Nuclear scans and normal EKG's per both radiology and Cardiology, no signs of ischemia, Patient has outpatient appointments with cards and PCP. She is to stop her HCTZ and Calcium at discharge. Recommend CBC, BMP and Thyroid studies at follow up appointment. Status at Discharge Functional status at discharge: independent ambulation Overall status at discharge: patient is progressing back to baseline Time Spent with Patient Time attestation: Total time spent providing and/or coordinating discharge services: Time spent: greater than 30 minutes Exam Narrative Exam Narrative: General: Patient is alert, and oriented to person, place and time with normal affect, proper hygiene Skin: no visible rashes, or ulcers Head: atraumatic, acephalic Eyes: PERRLA, no nystagmus present, conjunctiva clear, no scleral icterus Ears: normal gross auditory acuity Nose: symmetric, no discharge, no maxillary or frontal sinus tenderness Heart: Normal rate and rhythm, no murmurs/rubs/gallops Lungs: no audible wheezes, crackles and normal breath sounds all lung pinedo Abdomen: Normal audible bowel sounds, no distension, No palpable masses, no organomegaly, no rebound/guarding/ or rigidity Musculoskeletal: no swelling bilateral lower extremities, right arm is in a sling Neuro: CN II-X grossly intact Constitutional Vital Signs, click to edit/add: Last Vital Signs Temp 98.5 F 10/30/23 07:23 Pulse 65 10/30/23 08:00 Resp 16 10/30/23 07:26 BP 112/73 10/30/23 07:23 Pulse Ox 94 L 10/30/23 07:23 O2 Del Method Room Air 10/30/23 07:23 DS: Data Data Completed and Pending Labs on day of discharge: Labs from last 24 hours 10/30/23 10/29/23 05:38 06:34 WBC 12.0 H RBC 3.90 L Hgb 12.1 Hct 35.6 L MCV 91.3 MCH 31.0 MCHC 34.0 RDW 13.1 Plt Count 320 MPV 8.9 L Neut % (Auto) 73.1 Lymph % (Auto) 15.6 L Andrew % (Auto) 9.6 Eos % (Auto) 1.0 Baso % (Auto) 0.4 Neut # (Auto) 8.7 H Lymph # (Auto) 1.9 Andrew # (Auto) 1.2 H Eos # (Auto) 0.1 Baso # (Auto) 0.1 Abs Immat Gran (auto) 0.04 H Imm/Tot Granulo (auto) 0.3 Sodium 132 L Potassium 3.6 Chloride 97 L Carbon Dioxide 26.4 Anion Gap 12.2 BUN 14.0 Creatinine 0.81 Est GFR ( Amer) >60 Est GFR (Non-Af Amer) >60 BUN/Creatinine Ratio 17.3 Glucose 105 Estimat Average Glucose 105 Hemoglobin A1c 5.3 Calcium 8.9 Magnesium 1.8 Total Bilirubin 0.4 AST 22 ALT 47 Alkaline Phosphatase 77 NT-Pro-B Natriuret Pep 154.0 Total Protein 6.6 Albumin 3.2 L Globulin 3.4 Albumin/Globulin Ratio 0.9 Triglycerides 83 Cholesterol 129 LDL Cholesterol, Calc 65.4 VLDL Cholesterol 16.6 HDL Cholesterol 47 Cholesterol/HDL Ratio 2.7 Free T4 1.36 TSH & Free T4 Interp 0.311 L Discharge Plan Discharge Disposition: Home, Self-Care Discharge Medications: Continued acetaminophen 500 mg tablet 500 mg PO .q8 PRN (Reason: pain) aspirin 81 mg tablet,delayed release (DR/EC) 81 mg PO BID atorvastatin 20 mg tablet 20 mg PO .qhs docusate sodium 100 mg capsule 100 mg PO BID losartan 100 mg tablet 100 mg PO .qhs ibuprofen 800 mg tablet 800 mg PO QDAY PRN (Reason: pain) Rx Instructions: pt alternates with her tylenol for post op pain ondansetron HCl 4 mg tablet 4 mg PO Q8H PRN (Reason: nausea and vomiting) Discontinued calcium carbonate-vitamin D3 [Oysco 500/D] 500 mg-5 mcg (200 unit) tablet 1 tab PO BID hydrochlorothiazide 25 mg tablet 25 mg PO QDAY Activity: increase activity as tolerated Diet: advance to your usual diet Print Language: Faroese Patient Instructions: Hyponatremia (DC), Vertigo (DC), Near Syncope (DC) Forms: Portal Instructions Follow Up Appointments: . November 05 @ 8am with Daren Desai [phone] November 05 @ 10:40 am with [facility] Cardiology at the [place] [facility] with ANDREA Kurtz [phone] Discharge location: Home
[2023-10-30] MEDS: 0.9 % SODIUM CHLORIDE 1,000 ML 125 ML IV (09:32)
--- NOTE | 2023-10-30 11:06 | CM.NOTE ---
Rounds made with Dr. Ross. Plan based on test results. Pat verbalizes understanding.
[2023-10-30] MEDS: REGADENOSON 0.4 MG/5 ML SYRINGE IV (11:46)
[2023-10-30] MEDS: ASPIRIN 81 MG TABLET.DR PO (12:25)
--- NOTE | 2023-10-31 13:48 | CM.DCFOLLOWU ---
1st attempt 10/31/23
--- NOTE | 2023-11-05 13:42 | CM.DCFOLLOWU ---
2nd attempt 11/05/23
== END 2023-10-30 17:35 | disposition home or self-care (01) | DRG 641 ==
LOC: ER 18:43 → MS 20:51
PROVIDERS: Registered Nurse; Admitting Provider Family Medicine; Emergency Provider Emergency Medicine; PCP Family Medicine; Visit Provider Family Medicine
DX: E87.1 Hypo-osmolality and hyponatremia (principal); R94.31 Abnormal electrocardiogram [ECG] [EKG]; E83.42 Hypomagnesemia; E78.00 Pure hypercholesterolemia, unspecified; I10 Essential (primary) hypertension; R00.2 Palpitations; D72.829 Elevated white blood cell count, unspecified; S42.291D Other displaced fracture of upper end of right humerus, subsequent encounter for fracture with routine healing; Z98.890 Other specified postprocedural states; Z79.82 Long term (current) use of aspirin; W19.XXXD Unspecified fall, subsequent encounter
CPT/HCPCS: 36415; 71275; 78452; 80053; 80061; 81003; 83036; 83735; 83880; 84100; 84439; 84443; 84484; 85007; 85025; 85027; 85378; 85610; 85730; 87811; 93005; 93017; 93306; 94761; 96361; 96365; 96375; 99285; A9500; G0378; J2405; J2785; J3475; Q9967